=== PATIENT | female | born 1995 | race African-American/Black ===

== ENCOUNTER → 2017-06-12 | Day surgery (SDC) | payer BC ==
[2017-06-11 14:05] VITALS: BMI 41.6
[~2017-06-12] MED LIST: FLU VACC QS2017-18 36 mo. & older 0.5 ML SYRINGE IM ONE; Lidocaine 1% MPF 2 ML VIAL ONE; Lorazepam 1 MG TAB ONE; Sodium Bicarbonate 2.4 MEQ/5 ML ONE
[2017-06-12 08:54] VITALS: TEMP 98.5
--- NOTE | 2017-06-12 10:38 | ULT ---
PROCEDURE NOTE: Date: 06/12/17 PREPROCEDURE DIAGNOSIS: Right thyroid nodule. POSTPROCEDURE DIAGNOSIS: Right thyroid nodule. PROCEDURE: FNA of right thyroid nodule. MACHINIST WOOD: Dr. Moseley. COMPLICATIONS: None. SPECIMEN: Four FNA specimens of the right thyroid nodule. Three of these were with a 25 gauge and one was with an 18 gauge where aspiration of a portion of the cystic portion of the nodule was performed. ANESTHESIA: 5 mL of buffered 1% lidocaine. TECHNIQUE: Prior to the procedure, the risks and benefits of FNA of the right thyroid nodule were explained to the patient and she consented fully to the procedure. FINDINGS:\ZU\ Ultrasound \N\was again used to interrogate the thyroid. There are multiple thyroid nodules. The lar gest nodule demonstrates both mixed solid and cystic features in the lower pole of the right lobe of the thyroid. Some of the echogenic foci within this nodule demonstrate comet tail artifact, but yudelka e of the foci did not. The neck was prepped and draped in the usual sterile fashion. Lidocaine was used to anesthetize the skin and soft tissues down towards the thyroid nodule. Three 25 gauge needles were placed into the t hyroid nodule and material was obtained via to-and-fro motion. This material was given to the cytopa thology budget technician, who placed the specimens in Formal[employer]. An 18 gauge needle was then inserted in at tempt to aspirate a portion of the cystic portion of the mixed solid/cystic nodule. A to-and-fro mot ion was used with aspiration via a syringe. A small amount of the cystic component was able to be as pirated. This was given the radiologic technologist chief as well. The patient tolerated the procedure well without immediate postprocedure complication. A postprocedu re ultrasound showed no significant hematoma. IMPRESSION: Status post ultrasound guided thyroid nodule FNA. POS: [facility]
== END ==
LOC: ULT 07:30
PROVIDERS: ATTEND Specialist
PROC: BG43ZZZ Ultrasonography of Parathyroid Glands (ICD-10-PCS; principal; 2017-06-12)
PROC: 0G9K3ZX Drainage of Thyroid Gland, Percutaneous Approach, Diagnostic (ICD-10-PCS; principal; 2017-06-12)
DX: E04.1 Nontoxic single thyroid nodule (principal); J30.2 Other seasonal allergic rhinitis; F41.9 Anxiety disorder, unspecified; Z79.3 Long term (current) use of hormonal contraceptives; Z79.51 Long term (current) use of inhaled steroids; Z79.899 Other long term (current) drug therapy; Z88.8 Allergy status to other drugs, medicaments and biological substances; Z82.49 Family history of ischemic heart disease and other diseases of the circulatory system; Z83.49 Family history of other endocrine, nutritional and metabolic diseases
CPT/HCPCS: 10022; 76942; 88173

== ENCOUNTER 2018-12-27 14:01 | Emergency (ER) | payer BC, OTHER ==
[2018-12-27] MEDS ORDERED: Lorazepam 1 MG TAB ONE ×2 (14:31)
[2018-12-27 14:54] LABS: #Basophils 0.2 thou/uL (0.0-0.2); #Eosinphils 0.4 thou/uL (0.0-0.7); #Monocytes 0.5 thou/uL (0.11-0.59); #Neutrophils 3.2 thou/uL (1.40-6.50); %Basophils 2.4 % (0.0-1.0); %Eosinophils 5.6 % (0.0-10.0); %Monocytes 7.1 % (0.0-10.0); %Neutrophils 43.9 % (42.0-75.0); Hemoglobin 13.6 g/dL (12.0-16.0); Mean Corpuscular HGB CONC 31.7 g/dL (32.0-36.0); Mean Corpuscular Volume 88.4 fL (78.0-98.0); Mean Platelet Volume 7.2 fL (7.4-10.4); Platelet Count 330 thou/uL (130-400); RBC Distribution Width 13.1 % (11.5-14.5); Red Blood Cell (RBC) Count 4.86 mill/uL (4.20-5.40); White Blood Cell (WBC) Count 7.2 thou/uL (4.8-10.8)
[2018-12-27 14:59] LABS: BHCG - Serum Negative (NEGATIVE); Pregs Control Background? CLEAR/WHITE (CLR/WHITE); Pregs Control Bar Appear? YES (CONTROL BAR)
[2018-12-27 15:09] LABS: ALT (SGPT) 21 U/L (8-55); AST (SGOT) 16 U/L (5-34); Albumin 4.4 g/dL (3.5-5.0); Alkaline Phosphatase 84 U/L (40-150); Anion Gap 14 mmol/L (10-20); BUN (Urea Nitrogen) 7 mg/dL (7.0-18.7); Bilirubin, Total 0.3 mg/dL (0.2-1.2); Calc. Creatinine Clearance 0 mL/min (70-130); Calcium 9.8 mg/dL (7.8-10.44); Carbon Dioxide 23 mmol/L (22-29); Chloride 105 mmol/L (98-107); Estimated GFR-MDRD Greater than 90; Globulin 3.9 g/dL (2.4-3.5); Glucose 86 mg/dL (70-105); Potassium 3.8 mmol/L (3.5-5.1); Protein, Total 8.3 g/dL (6.0-8.3); Sodium 138 mmol/L (136-145)
== END 2018-12-27 15:22 | disposition home or self-care (01) ==
LOC: SCSER 14:01
DX: F41.9 Anxiety disorder, unspecified (principal)
CPT/HCPCS: 36415; 80053; 84703; 85025; 93005